=== PATIENT | female | born 1955 | race American Indian/Alaskan Native ===

== ENCOUNTER 2019-10-02 11:45 | Day surgery (SDC) | payer OTHER ==
[~2019-10-02 11:45] MED LIST: LIDOCAINE MPF (2%) 20 MG/1 ML VIAL 5 ML ONE; ceFAZolin/Water 2 GM/20 ML 2 GM/20 ML SYRINGE IV NR; fentaNYL 100 MCG/2 ML INJ ONE; propofoL 200 MG/20 ML VIAL IV ONE
[2019-10-02] MEDS ORDERED: fentaNYL 100 MCG/2 ML INJ IV PRN (12:48)
--- NOTE | 2019-10-02 12:48 | Anesthesia Day of Surgery ---
Anesthesia Day of Surgery - Day of Surgery Patient Examined: Yes Patient H&P Reviewed: Yes Patient is NPO: Yes
--- NOTE | 2019-10-02 12:48 | Anesthesia Consultation ---
Anesthesia Consult and Med Hx Date of service: 10/02/19 - Airway Anesthetic Teeth Evaluation: Edentulous ROM Head & Neck: Adequate Mental/Hyoid Distance: Inadequate Mallampati Class: Class II Intubation Access Assessment: Possibly Difficult - Pulmonary Exam CTA: Yes - Cardiac Exam Cardiac Exam: RRR - Pre-Operative Health Status ASA Pre-Surgery Classification: ASA2 Proposed Anesthetic Plan: General - Pulmonary Hx Smoking: Yes (1/2 PPD X 30 YRS) Hx Respiratory Symptoms: No Hx Sleep Apnea: No (JOSÉ MIGUEL PRE SCREEN LOW RISK) - Cardiovascular System Hx Hypertension: No Hx Heart Attack/AMI: No Hx Percutaneous Transluminal Coronary Angioplasty (PTCA): No - Central Nervous System CVA: No Hx Back Pain: Yes (WITH KEVIN LEG PAIN) - Gastrointestinal Hx Gastroesophageal Reflux Disease: No - Endocrine Hx Renal Disease: No Hx Liver Disease: No Hx Insulin Dependent Diabetes: No Hx Non-Insulin Dependent Diabetes: No Hx Thyroid Disease: No - Other Systems Hx Obesity: Yes (BMI 33) - Additional Comments Anesthesia Medical History Comments: Hx delayed emergence requiring unplanned admission many years ago with GA.
[2019-10-02] MEDS ORDERED: LACTATED RINGERS 1,000 ML IV SCH (13:00)
[2019-10-02] MEDS ORDERED: ONDANSETRON 4 MG/2 ML INJ ONE (14:43)
[2019-10-02] MEDS ORDERED: dexAMETHasone 20 MG/5 ML VIAL ONE (14:43)
[2019-10-02] MEDS ORDERED: GLYCOPYRROLATE 0.4 MG/2 ML INJ ONE (14:58)
[2019-10-02] MEDS ORDERED: WATER FOR IRRIG STERILE 1,500 ML BOTTLE IR ONE (15:27)
[2019-10-02] MEDS ORDERED: WATER FOR IRRIG STERILE 2000 ML IR ONE (15:27)
--- NOTE | 2019-10-02 15:45 | Short Stay Summary ---
Short Stay Documentation Date of service: 10/02/19 - History H&P: obtained from office - Allergies and Medications Current Medications: Allergies No Known Allergies Allergy (Verified 10/01/19 10:33) Home Medications Medication Instructions Recorded Confirmed Last Taken Type No Known Home Medications [No 10/01/19 10/02/19 Unknown History Reported Home Medications] Active Medications Fentanyl (Sublimaze) 50 mcg IV Q5MIN PRN PRN Reason: Pain , Severe (7-10) Cefazolin Sodium (Ancef/Sterile Water 2 Gm/20 Ml) 2 gm in 20 mls @ 80 mls/hr IV PREOP NR; Protocol Stop: 10/02/19 23:59 Lactated Ringer's (Lactated Ringers) 1,000 mls @ 100 mls/hr IV DIRECT DARIO Last Admin: 10/02/19 13:10 Dose: 100 mls/hr Documented by: - Brief post op/procedure progress note Date of procedure: 10/02/19 Pre-op diagnosis: gross hematuria, bladder mass Post-op diagnosis: other (large bladder tumors) Procedure: cysto, rpg, TURBTS (LARGE), CYSTOGRAM Anesthesia: GETA Surgeon: DEBORA PLEITEZ Estimated blood loss: 50-100ml Pathology: list (BLADDER TUMORS) - Hospital course Hospital course: [facility] ON CHART - Disposition Condition at discharge: Stable Disposition: DC- TO HOME OR SELFCARE Short Stay Discharge Plan Follow up with: AIDE LATHAM MD [Primary Care Provider] - 7 Days
--- NOTE | 2019-10-02 16:07 | Operative Report ---
PREOPERATIVE DIAGNOSES: Gross hematuria, bladder mass on CT. POSTOPERATIVE DIAGNOSES: Gross hematuria, bladder mass on CT. PROCEDURES: Cystoscopy, right retrograde pyelogram, TUR multiple large bladder tumors, cystogram (staged procedure). SURGEON: Marcio Kan MD ANESTHESIA: General. ESTIMATED BLOOD LOSS: Minimal. FLUIDS: Crystalloid. COMPLICATIONS: No complications. INDICATIONS: This patient is a 64-year-old female with history of gross hematuria since June 2019. CT of abdomen and pelvis revealed 2 bladder masses, no hydronephrosis. She presents now for surgical intervention. She gives a 30-year history of smoking. DESCRIPTION OF PROCEDURE: The patient was taken to the operative suite, placed in a supine position. After adequate general anesthesia, placed in a dorsal lithotomy position, prepped and draped in a sterile fashion. Pancystourethroscopy was performed with a 22-Filipino Storz cystoscope. Obvious bladder tumors, largest on the left side, smaller on the right to the midline on the posterior wall of the bladder, right ureteral orifice could be appreciated. Left side could not due to the bladder tumor. Right retrograde pyelogram was obtained with an 8-Filipino Adrianne catheter and 8 mL of contrast. No filling defects or obstruction. Left side could not be performed. Next, using a yellow loop, transurethral resection of the bladder tumor was performed in a systematic fashion. Right-sided tumor could be taken down and chips were irrigated out. Left side was incomplete resection, was getting thin on the bladder wall and elected to prevent perforation. Cystogram was performed. No perforation could be appreciated. A 22-Filipino 3-way catheter with a plug was placed. The patient tolerated the procedure well. She was extubated and taken to recovery room. She will go home on Kognitio and Kleen Extreme and follow up in the office. JOB# [id number] MARILU/BUCKY
--- NOTE | 2019-10-02 16:46 | Fluoroscopy Report ---
Cystography with retrograde ureterography. FINDINGS: The bladder was distended with contrast demonstrating no abnormality. Retrograde ureterogra phy was performed on the right demonstrating no abnormality. Fluoroscopy time: 7 seconds. 5 fluoroscopic images were obtained. Signer Name: Jostin Rucker MD Signed: 10/02/2019 4:41 PM Workstation Name: [id number]
[2019-10-02 17:09] VITALS: BP 158/72
--- NOTE | 2019-10-02 20:24 | Post Anesthesia Evaluation ---
- Post Anesthesia Evaluation Patient Participated: Yes Airway Patent: Yes Stable Respiratory Function: Yes Nausea/Vomiting: No Temp > 96.8F: Yes Pain Manageable: Yes Adequeate Hydration: Yes Anesthesia Complications: No
== END 2019-10-02 17:35 | disposition home or self-care (01) ==
LOC: OR 11:45
PROVIDERS: ATTEND Urology
DX: R31.0 Gross hematuria (principal); C67.4 Malignant neoplasm of posterior wall of bladder; Z98.51 Tubal ligation status; F17.210 Nicotine dependence, cigarettes, uncomplicated; E66.9 Obesity, unspecified; Z68.33 Body mass index [BMI] 33.0-33.9, adult; Z87.440 Personal history of urinary (tract) infections; Z98.890 Other specified postprocedural states
CPT/HCPCS: 52240; 74420; 74430; 88305; 88312; A4217; C1758; J0690; J1100; J2405; J2704; J3010; J7120; Q9967; 88307

== ENCOUNTER 2019-12-23 05:47 | Day surgery (SDC) | payer OTHER, MEDICARE ==
[2019-12-23] MEDS ORDERED: LACTATED RINGERS 1,000 ML IV SCH (06:00)
[2019-12-23] MEDS ORDERED: BACTERIOSTATIC SODIUM CHLORIDE 0.9% 30 ML VIAL INFILTRATI ONE (06:28)
[2019-12-23] MEDS ORDERED: fentaNYL 100 MCG/2 ML INJ IV PRN (07:11)
--- NOTE | 2019-12-23 07:13 | Anesthesia Day of Surgery ---
Anesthesia Day of Surgery - Day of Surgery Patient Examined: Yes Patient H&P Reviewed: Yes Patient is NPO: Yes
--- NOTE | 2019-12-23 07:13 | Anesthesia Consultation ---
Anesthesia Consult and Med Hx - Airway Anesthetic Teeth Evaluation: Edentulous ROM Head & Neck: Adequate Mental/Hyoid Distance: Adequate Mallampati Class: Class III Intubation Access Assessment: Probably Good (previous easy LMA 4) - Pulmonary Exam CTA: Yes - Cardiac Exam Cardiac Exam: RRR - Pre-Operative Health Status ASA Pre-Surgery Classification: ASA2 Proposed Anesthetic Plan: General - Pulmonary Hx Smoking: Yes (quit 10/05/2019; previously 1/2 PPD X 30 YRS) Hx Respiratory Symptoms: No Hx Sleep Apnea: No (JOSÉ MIGUEL PRE SCREEN LOW RISK) - Cardiovascular System Hx Hypertension: No Hx Heart Attack/AMI: No Hx Percutaneous Transluminal Coronary Angioplasty (PTCA): No - Central Nervous System CVA: No Hx Back Pain: Yes (2/2 spinal stenosis w/ b/l leg pain) - Gastrointestinal Hx Gastroesophageal Reflux Disease: No - Endocrine Hx Renal Disease: No Hx Liver Disease: No Hx Insulin Dependent Diabetes: No Hx Non-Insulin Dependent Diabetes: No Hx Thyroid Disease: No - Other Systems Hx Obesity: Yes (BMI 33) - Additional Comments Anesthesia Medical History Comments: Hx delayed emergence requiring unplanned admission however had no issues with most recent anesthetic. Prev anes record reviewed.
[2019-12-23] MEDS ORDERED: HYDROmorphone 1 MG/1 ML INJ ONE (07:24)
[2019-12-23] MEDS ORDERED: propofoL 200 MG/20 ML VIAL IV ONE (07:25)
[2019-12-23] MEDS ORDERED: LIDOCAINE MPF (2%) 20 MG/1 ML VIAL 5 ML ONE (07:30)
[2019-12-23] MEDS ORDERED: ONDANSETRON 4 MG/2 ML INJ ONE (08:56)
[2019-12-23] MEDS ORDERED: MANNITOL/SORBITOL SOLUTION 3,000 ML IRRIG.SOLN IR ONE (09:03)
[2019-12-23] MEDS ORDERED: WATER FOR IRRIG STERILE 2000 ML IR ONE (09:04)
--- NOTE | 2019-12-23 09:16 | Short Stay Summary ---
Short Stay Documentation Date of service: 12/23/19 Narrative H&P: bladder tumor (residual) needs 2nd look TURBT - History Past Medical History: hypertension ( x2) Social history: smoking - Allergies and Medications Current Medications: Allergies No Known Allergies Allergy (Verified 10/01/19 10:33) Home Medications Medication Instructions Recorded Confirmed Last Taken Type No Known Home Medications [No 10/01/19 12/09/19 Unknown History Reported Home Medications] Active Medications Fentanyl (Sublimaze) 50 mcg IV Q5MIN PRN PRN Reason: Pain , Severe (7-10) Stop: 12/23/19 23:00 Levofloxacin/Dextrose (Levaquin 500mg/100ml) 500 mg in 100 mls @ 100 mls/hr IV PREOP NR; Protocol Stop: 12/23/19 23:59 Lactated Ringer's (Lactated Ringers) 1,000 mls @ 100 mls/hr IV DIRECT DARIO Stop: 12/23/19 23:59 Last Admin: 12/23/19 06:35 Dose: 100 mls/hr Documented by: - Physical exam General appearance: no acute distress, well-nourished Integumentary: no rash, no growths Lungs: Clear to auscultation, Normal air movement Heart: Regular rate, No murmurs Gastrointestinal: normal Female Genitourinary: normal Extremities: no ischemia, No edema Neurological: Normal gait - Brief post op/procedure progress note Date of procedure: 12/23/19 Pre-op diagnosis: bladder turmor Post-op diagnosis: same Procedure: cysto, TURBT---residual tumor Anesthesia: GETA Surgeon: DEBORA PLEITEZ Estimated blood loss: minimal Pathology: list (bladde tumor) Specimen disposition: to lab Condition: stable - Hospital course Hospital course: arnold khan norco on chart - Disposition Condition at discharge: Stable Disposition: - TO HOME OR SELFCARE Short Stay Discharge Plan Follow up with: AIDE LATHAM MD [Primary Care Provider] - 7 Days
--- NOTE | 2019-12-23 09:53 | Operative Report ---
PREOPERATIVE DIAGNOSIS: Residual bladder tumor. POSTOPERATIVE DIAGNOSES: Residual bladder tumor. PROCEDURES: Cystoscopy, transurethral resection of bladder tumor, moderate cystogram. SURGEON: Marcio Kan MD ANESTHESIA: General. ESTIMATED BLOOD LOSS: Minimal. FLUIDS: Crystalloid. COMPLICATIONS: No complications. INDICATIONS: This patient is a 64-year-old female with history of smoking and gross hematuria for 3 months. She was found to have bladder tumor in September, underwent transurethral resection, had large volume developed and due to deep had to perform deep bites to get some of the tumor out. Left the Crouch catheter and residual tumor. She presents now for a second look. DESCRIPTION OF PROCEDURE: The patient was taken to the operative suite, placed in a supine position. After adequate general anesthesia, placed in a dorsal lithotomy position, prepped and draped in a sterile fashion. Pancystourethroscopy was performed with 22-Iraqi Storz cystoscope and obvious bladder tumor around the ureteral orifices and posteriorly. Could not see the ureteral orifice. CT scan in August, no hydronephrosis. Next, using a yellow loop with cutting and coag on 120 and 60, transurethral resection of the tumors around the ureteral orifices bilaterally. Posteriorly, the bladder was distended. There were multiple tumors that were resected. Again, due to the location of the upper posterior wall and there was a thin area, I stopped, will leave a Crouch catheter for decompression and will recommend intravesical therapy. She was extubated and taken to recovery room. She will go home on Cipro, Ultram and [place]. JOB# [id number] [facility]
[2019-12-23] MEDS ORDERED: SODIUM CHLORIDE IRRI 1000 ML 1,000 ML IR ONE (10:22)
[2019-12-23] MEDS ORDERED: ONDANSETRON 4 MG/2 ML INJ IV PRN (11:30)
[2019-12-23] MEDS ORDERED: SODIUM CHLORIDE 0.9% IRR 1,000 ML BOTTLE IR PRN (11:30)
[2019-12-23 12:25] VITALS: BP 133/55
--- NOTE | 2019-12-23 15:07 | Fluoroscopy Report ---
FLUOROSCOPY CYSTOGRAM STATIC HISTORY: Bladder tumor FINDINGS: 7 seconds of fluoroscopy time was provided by radiology during cystogram by urology. 5 fluo roscopic images are presented. A Crouch catheter is present in the lower bladder. There is normal fill ing of the bladder with contrast agent. No evidence for mass, extravasation or reflux. There is compl ete drainage of the bladder on the final image. Please correlate with the procedural report by urolog y as needed. Signer Name: Juan Cee Jr, MD Signed: 12/23/2019 3:03 PM Workstation Name: [id number]
== END 2019-12-23 05:48 | disposition home or self-care (01) ==
LOC: OR 05:47
PROVIDERS: ATTEND Urology
DX: C67.2 Malignant neoplasm of lateral wall of bladder (principal); R31.0 Gross hematuria; Z87.891 Personal history of nicotine dependence; E66.9 Obesity, unspecified; Z98.51 Tubal ligation status; Z87.440 Personal history of urinary (tract) infections; Z98.890 Other specified postprocedural states
CPT/HCPCS: 52240; 74430; 88305; A4217; J1170; J1956; J2405; J2704; J7120; Q9967; C1758